=== PATIENT | male | born 1950 | race Caucasian/White ===

== ENCOUNTER → 2016-10-22 | Outpatient (REF) ==
--- NOTE | 2016-10-22 11:10 | DI ---
EXAM: Two views of the chest. History: Annual pre employment physical chest radiograph screening Comparison: Chest radiograph 09/26/2014 Findings: Heart size is normal. No focal consolidation. No appreciable pleural fluid and no pneum othorax. No acute osseous abnormalities. Impression: No acute cardiopulmonary process.
== END ==
LOC: RAD 10:44
DX: Z02.89 Encounter for other administrative examinations (principal)